=== PATIENT | female | born 1950 | race Two or more races ===

== ENCOUNTER → 2017-10-02 | Outpatient (CLI) | payer MEDICARE, MEDICAID ==
--- NOTE | 2017-10-02 11:35 | WOMENS IMAGING REPORT ---
EXAM DESCRIPTION: BILAT SCREENING MAMMO W/CAD COMPLETED DATE/TIME: 10/02/2017 8:46 am REASON FOR STUDY: SCREENING MAMMO Z12.31 ENCNTR SCREEN MAMMOGRAM FOR MALIGNANT NEOPLASM OF JOSE ANTONIO COMPARISON: 2014, 2015 TECHNIQUE: Standard craniocaudal and mediolateral oblique views of each breast recorded using digita l acquisition. LIMITATIONS: None. FINDINGS: No masses, calcifications or architectural distortion. No areas of suspicion. Read with the assistance of CAD. .[facility] - R2 Cenova Version 1.3 .[facility] Imaging - R2 Cenova Version 1.3 .[facility] Imaging - R2 Cenova Version 2.4 .[facility] - R2 Cenova Version 2.4 .[facility] - R2 Pharmacy Order Entry Technician Version 9.2 IMPRESSION: NORMAL MAMMOGRAM. BIRADS 1. BREAST DENSITY: b. There are scattered areas of fibroglandular density. BIRAD: 1 NEGATIVE RECOMMENDATION: ROUTINE SCREENING COMMENT: The patient has been notified of the results by letter per MQSA requirements. Additional no tification policies are in place for contacting patient with suspicious or incomplete findings. Quality ID #225: The [employer] recommends an annual screening mammogram for women aged 40 years or over. This facility utilizes a reminder system to ensure that all patients receive reminder letters, and/or direct phone calls for appointments. This includes reminders for routine scr eening mammograms, diagnostic mammograms, or other Breast Imaging Interventions when appropriate. Th is patient will be placed in the appropriate reminder system. The [employer] (ACR) has developed recommendations for screening MRI of the breast s in certain patient populations, to be used in conjunction with mammography. Breast MRI surveillanc e may be appropriate for women with more than 20% lifetime risk of developing breast cancer as deter mined by genetic testing, significant family history of the disease, or history of mantle radiation f or Hodgkins Disease. ACR Practice Guidelines 2008. TECHNICAL DOCUMENTATION: FINDING NUMBER: (1) ASSESSMENT: (1) JOB ID: [id number] [employer]- All Rights Reserved
== END ==
LOC: RAD 08:16
PROVIDERS: ATTEND Physician Assistant Medical
DX: Z12.31 Encounter for screening mammogram for malignant neoplasm of breast (principal)
CPT/HCPCS: 77067; G0202

== ENCOUNTER 2017-12-16 16:25 | Emergency (ER) | payer MEDICARE, MEDICAID ==
[2017-12-16] MEDS ORDERED: KETOROLAC TROMETHAMINE 60 MG/2 ML SDV IM ONE (18:30)
[2017-12-16] MEDS ORDERED: DEXAMETHASONE SOD PHOS INJ 10 MG/1 ML VIAL IM ONE (18:31)
--- NOTE | 2017-12-16 18:37 | ER Document Report ---
ED Neck/Back Problem - General Chief Complaint: Low Back Pain Stated Complaint: LOWER BACK PAIN Time Seen by Provider: 12/16/17 18:14 Mode of Arrival: Ambulatory Information source: Patient Notes: 67-year-old female presents to ED for complaint of low back pain across the left buttocks and down the left leg. She states she is had the pain for a while longer, but it is been severe for about a week and a half Saturday it got much worse. She states she has been to her primary doctor they did x-rays and told she had arthritis. They did not do x-rays of her hip she states. She does have a history of high blood pressure enlarged heart reflux gout vitamin D deficiency and arthritis. TRAVEL OUTSIDE OF THE [place] IN LAST 30 DAYS: No - HPI Patient complains to provider of: Pain, Lower back - Coughs left buttocks and down left leg Onset: Other - Week and a half, worse on Saturday Where: Home Onset: Gradual Timing: Still present Quality of pain: Sharp, Throbbing Severity: Severe Pain Level: 5 Context: Bending, Lifting, Turning Recent injury: No Associated symptoms: Like prior neck/back pain, Radiation to leg, Lower back pain - Cross left buttocks down left leg. denies: Constipation, Fever, Incontinence, Motor loss, Numbness/tingling, Sensory loss, Sweaty, Unable to urinate, Upper back pain Exacerbated by: Movement of trunk Relieved by: Nothing Similar symptoms previously: Yes Recently seen / treated by doctor: Yes - Related Data Allergies/Adverse Reactions: No Known Allergies Allergy (Verified 12/16/17 16:26) Past Medical History - General Information source: Patient - Social History Smoking Status: Never Smoker Cigarette use (# per day): No Chew tobacco use (# tins/day): No Smoking Education Provided: No Frequency of alcohol use: None Drug Abuse: None Lives with: Family Family History: Reviewed & Not Pertinent Patient has suicidal ideation: No Patient has homicidal ideation: No - Past Medical History Cardiac Medical History: Reports: Hx Hypertension, Other - Enlarged heart Pulmonary Medical History: Reports: None EENT Medical History: Reports: None Neurological Medical History: Reports: None Endocrine Medical History: Reports: None Renal/ Medical History: Reports: None Malignancy Medical History: Reports: None GI Medical History: Reports: None Musculoskeltal Medical History: Reports Hx Arthritis Skin Medical History: Reports None Psychiatric Medical History: Reports: None Traumatic Medical History: Reports: None Infectious Medical History: Reports: None Past Surgical History: Reports: Hx Abdominal Surgery - Ventral hernia surgery 3 , Hx Orthopedic Surgery - Left elbow pinched nerve, Other - Then lifted eyelids cataracts both eyes Review of Systems - Review of Systems Notes: Constitutional: [PRESENT: as per HPI. ABSENT: chills, fever(s), headache(s), weight gain, weight loss] Eyes: [ABSENT: visual disturbances] Ears: [ABSENT: hearing changes] Cardiovascular: [ABSENT: chest pain, dyspnea on exertion, edema, orthropnea, palpitations] Respiratory: [ABSENT: cough, hemoptysis] Gastrointestinal: [ABSENT: abdominal pain, constipation, diarrhea, hematemesis, hematochezia, nausea, vomiting] denies loss of control of bowel Genitourinary: [ABSENT: dysuria, hematuria] denies loss control of bladder Musculoskeletal: Complains of low back pain radiating across the left buttocks and down the left leg. Integumentary: [ABSENT: rash, wounds] Neurological: [ABSENT: abnormal gait, abnormal speech, confusion, dizziness, focal weakness, syncope] Psychiatric: [ABSENT: anxiety, depression, homicidal ideation, suicidal ideation ] Endocrine: [ABSENT: cold intolerance, heat intolerance, menstrual abnormalities , polydipsia, polyuria] Hematologic/Lymphatic: [ABSENT: easy bleeding, easy bruising, lymphadenopathy] Physical Exam - Vital signs Vitals: Temp Pulse Resp BP Pulse Ox 98.8 F 97 18 120/75 95 12/16/17 16:31 12/16/17 16:31 12/16/17 16:31 12/16/17 16:31 12/16/17 16:31 - Notes Notes: PHYSICAL EXAMINATION: GENERAL: Well-appearing, well-nourished and in no acute distress. HEAD: Atraumatic, normocephalic. EYES: Pupils equal round and reactive to light, extraocular movements intact, conjunctiva are normal. ENT: Nares patent, oropharynx clear without exudates. Moist mucous membranes. NECK: Normal range of motion, supple without lymphadenopathy LUNGS: Breath sounds clear to auscultation bilaterally and equal. No wheezes rales or rhonchi. HEART: Regular rate and rhythm without murmurs ABDOMEN: Soft, nontender, nondistended abdomen. No guarding, no rebound. No masses appreciated. Female : deferred Musculoskeletal: Tenderness to low back across the left buttocks and upper left thigh NEUROLOGICAL: Cranial nerves grossly intact. Normal speech, normal gait. Normal sensory, motor exams PSYCH: Normal mood, normal affect. SKIN: Warm, Dry, normal turgor, no rashes or lesions noted. Course - Re-evaluation Re-evalutation: 12/17/17 02:01 Left hip x-ray was negative for any acute injuries that did show arthritis. Patient states she recently had a l lumbar x-ray which was showed arthritis. Patient was treated with Toradol Decadron and Flexeril. Patient was discharged home to follow-up with orthopedics. - Vital Signs Vital signs: Temp Pulse Resp BP Pulse Ox 98.4 F 81 16 130/69 H 98 12/16/17 21:02 12/16/17 21:02 12/16/17 21:02 12/16/17 21:02 12/16/17 21:02 - Diagnostic Test Radiology reviewed: Image reviewed, Reports reviewed Discharge - Discharge Clinical Impression: Low back pain Qualifiers: Chronicity: acute Back pain laterality: left Sciatica presence: with sciatica Sciatica laterality: sciatica of left side Qualified Code(s): M54.42 - Lumbago with sciatica, left side Condition: Stable Disposition: HOME, SELF-CARE Additional Instructions: LOW BACK PAIN: Three out of every four people will have an episode of disabling back pain during their lifetime. Most commonly the pain is due to straining of the muscles and ligaments in the low back. Usual treatment includes: (1) Rest on a firm surface. Avoid lying on your stomach. (2) Ice pack the painful area. After a few days, gentle heat may be used intermittently to relax the area, or ice packs can be continued. (3) Medication may be needed -- muscle relaxers and antiinflammatory medicines are commonly used. (4) As the back improves, exercises are prescribed to strengthen the back and abdominal muscles. Your doctor will advise you on the proper care for your back at each stage in your recovery. You may be better in a few days -- or healing may take several weeks. If new symptoms of a "herniated disc" (radiation of pain, numbness, or tingling down the back of the leg or weakness in the leg) occur, you should be re-examined. Further testing may be necessary. STEROID MEDICATION: You have been given a medicine of the cortisone/steroid class. This medication is used to control inflammation or allergy. It is usually only given for a short period of time, until the acute process subsides. There are usually no side effects from short-term use of cortisone-like medications. Some persons feel an increased sense of well-being and are not sleepy at bedtime. Long-term use of cortisone medications is best avoided, unless required for a severe condition. If your condition does not remit, or relapses after the course of corticosteroid medication, you should consult your physician. Toradol Injection You have been given an injection of ketorolac tromethamine (Toradol). This is an excellent, safe drug for pain control. It also has potent antiinflammatory action. You should have significant pain relief within about one hour. Toradol is not addicting and is non-sedating. It does not interfere with driving or work. Call or return if you develop itching, hives, shortness of breath, or rash. MUSCLE RELAXERS: Muscle relaxing medications are usually prescribed for acute muscle spasm or injury to the neck and back. They are often combined with antiinflammatory pain medication for increased relief. You may stop the muscle relaxer when the pain and stiffness have improved. Start the medication again if spasms recur. Muscle relaxers may cause drowsiness, especially with the first dose. Do not operate machinery or drive while under the effects of the medication. Most muscle relaxers last up to 24 hours. Do not combine the medication with alcohol. ICE PACKS: Apply ice packs frequently against the painful area. Many different schedules are recommended, such as "20 minutes on, 20 minutes off" or "one hour ice, two hours rest." If you need to work, you may need to go longer between ice treatments. You should plan to have the area ice packed AT LEAST one fourth of the time. The ice should be applied over the wrap, tape, or splint, or over a layer of cloth -- not directly against the skin. Some ice bags have a built-in cloth and can be put directly on the skin. WARM PACKS: After approximately two days, apply gentle heat (such as a heating pad or hot water bottle) for about 20 to 30 minutes about every two hours -- at least four times daily. Warmth and elevation will help you make a more rapid recovery , and will ease the pain considerably. Do not use HOT heat, and never apply heat for longer than 30 minutes. The continuous heat can invisibly damage skin and muscles -- even when no burn is seen on the surface. Damaged muscles can make you MORE sore. FOLLOW-UP CARE: If you have been referred to a physician for follow-up care, call the physician s office for an appointment as you were instructed or within the next two days. If you experience worsening or a significant change in your symptoms, notify the physician immediately or return to the Emergency Department at any time for re-evaluation. Prescriptions: Cyclobenzaprine HCl [Flexeril 10 mg Tablet] 10 mg PO TIDP PRN #15 tab PRN Reason: Referrals: LIDIA RUBIO PA-C [Primary Care Provider] - Follow up as needed SILVIA CORNELL MD [ASSOCIATE] - Follow up as needed
--- NOTE | 2017-12-16 19:02 | RADIOLOGY REPORT (SQ) ---
EXAM DESCRIPTION: HIP LEFT AP/LATERAL COMPLETED DATE/TIME: 12/16/2017 6:54 pm REASON FOR STUDY: Severe pain left hip and buttocks COMPARISON: None. NUMBER OF VIEWS: Two views. TECHNIQUE: AP pelvis and additional frog-leg view of the left hip. LIMITATIONS: None. FINDINGS: MINERALIZATION: Normal. LEFT HIP: No fracture or dislocation. No worrisome bone lesions. No significant joint space narrowi ng RIGHT HIP: No fracture or dislocation. No worrisome bone lesions. No significant joint space narrow ing PUBIS AND ISCHIUM: No fracture. PELVIS: No fracture. SACRUM: No gross displaced sacral fracture. SI joint sclerosis bilaterally LOWER LUMBAR SPINE: Advanced degenerative disc changes and facet arthropathy at L4-5 and L5-S1 SOFT TISSUES: Multiple calcified pelvic phleboliths. Multiple surgical clips over the lower abdomen . OTHER: No other significant finding. IMPRESSION: No gross acute displaced left hip fracture or fracture of the pelvis. SI joint sclerosis bilaterally. Advanced lower lumbar facet and disc space degenerative changes TECHNICAL DOCUMENTATION: JOB ID: [id number] [employer]- All Rights Reserved Reading location - IP/workstation name: [facility]
[2017-12-16] MEDS ORDERED: CYCLOBENZAPRINE HCL 10 MG TABLET PO ONE (20:48)
[2017-12-16 21:03] VITALS: BP 130/69
== END 2017-12-16 21:02 | disposition home or self-care (01) ==
LOC: ER 16:25
DX: M54.42 Lumbago with sciatica, left side (principal); I10 Essential (primary) hypertension
CPT/HCPCS: 99283; 96372; 73502; A9270; J1885; J1100

== ENCOUNTER 2018-06-22 11:20 | Emergency (ER) | payer MEDICARE, MEDICAID ==
[2018-06-22 11:38] VITALS: BP 136/89
[2018-06-22] MEDS ORDERED: TRAMADOL HCL 50 MG TABLET PO ONE (12:04)
[2018-06-22] MEDS ORDERED: DEXAMETHASONE SOD PHOS INJ 10 MG/1 ML VIAL IM ONE (12:04)
[2018-06-22] MEDS ORDERED: LIDOCAINE 5% (700 MG) TRANSDERMAL ADH..PATCH TP ONE (12:04)
[2018-06-22] MEDS ORDERED: KETOROLAC TROMETHAMINE 60 MG/2 ML SDV IM ONE (12:04)
--- NOTE | 2018-06-22 12:10 | ER Document Report ---
ED General - General Chief Complaint: Back Pain Stated Complaint: BACK PAIN Time Seen by Provider: 06/22/18 11:50 TRAVEL OUTSIDE OF THE [place] IN LAST 30 DAYS: No - HPI Patient complains to provider of: Acute exacerbation of chronic back pain Notes: Patient coming in for acute exacerbation of chronic back pain. Patient states she did miss her last pain management appointment where she was getting injections. Patient states acutely increase in pain in the last 24-48 hours. Patient locates most of the pain at the sacroiliac joint on the left-hand side. Patient denies any pain going down her leg but does state there is some pain going into her buttocks. Patient states she has been told pain is related to arthritis in the past receiving good relief with Toradol and steroid injection in the past. Patient states she is on muscle relaxers at home states that these not been relieving her pain. Denies any trauma denies any fevers chills nausea vomiting diarrhea denies any tingling denies any saddle anesthesias denies any loss of bowel or bladder function - Related Data Allergies/Adverse Reactions: Penicillins Allergy (Verified 06/22/18 11:51) Past Medical History - Social History Smoking Status: Former Smoker Family History: Reviewed & Not Pertinent Patient has suicidal ideation: No Patient has homicidal ideation: No - Past Medical History Cardiac Medical History: Reports: Hx Hypertension Renal/ Medical History: Denies: Hx Peritoneal Dialysis Musculoskeletal Medical History: Reports Hx Arthritis Past Surgical History: Reports: Hx Abdominal Surgery - Ventral hernia surgery 3 , Hx Orthopedic Surgery - Left elbow pinched nerve, Other - Then lifted eyelids cataracts both eyes Review of Systems - Review of Systems Constitutional: No symptoms reported EENT: No symptoms reported Cardiovascular: No symptoms reported Respiratory: No symptoms reported Gastrointestinal: No symptoms reported Genitourinary: No symptoms reported Female Genitourinary: No symptoms reported Musculoskeletal: Back pain Skin: No symptoms reported Hematologic/Lymphatic: No symptoms reported Neurological/Psychological: No symptoms reported -: Yes All other systems reviewed and negative Physical Exam - Vital signs Vitals: Temp Pulse Resp BP Pulse Ox 97.9 F 95 17 136/89 H 98 06/22/18 11:36 06/22/18 11:36 06/22/18 11:36 06/22/18 11:36 06/22/18 11:36 Interpretation: Normal - General General appearance: Appears well, Alert - HEENT Head: Normocephalic, Atraumatic Eyes: Normal Pupils: PERRL - Respiratory Respiratory status: No respiratory distress Chest status: Nontender Breath sounds: Normal Chest palpation: Normal - Cardiovascular Rhythm: Regular Heart sounds: Normal auscultation Murmur: No - Abdominal Inspection: Normal Distension: No distension Bowel sounds: Normal Tenderness: Nontender Organomegaly: No organomegaly - Back Back: Normal, Nontender, Other - Patient with exquisite tenderness palpation the sacroiliac joint on left with pain as well with palpation of the piriformis muscle however minimal pain going down the back of the patient's leg to palpation - Extremities General upper extremity: Normal inspection, Nontender, Normal color, Normal ROM , Normal temperature General lower extremity: Normal inspection, Nontender, Normal color, Normal ROM , Normal temperature, Normal weight bearing. No: Kaylynn's sign - Neurological Neuro grossly intact: Yes Cognition: Normal Orientation: AAOx4 Yary Coma Scale Eye Opening: Spontaneous Yary Coma Scale Verbal: Oriented Yary Coma Scale Motor: Obeys Commands Yary Coma Scale Total: 15 Speech: Normal Motor strength normal: LUE, RUE, LLE, RLE Sensory: Normal - Psychological Associated symptoms: Normal affect, Normal mood - Skin Skin Temperature: Warm Skin Moisture: Dry Skin Color: Normal Course - Re-evaluation Re-evalutation: 06/22/18 20:18 Acute exacerbation of chronic back pain with some sciatic symptoms to palpation. Patient will be given Toradol steroid shot will also start patient on a Ultram regimen to help out with her pain control. Patient was warned about taking Ultram her muscle relaxers together states that she will only take the Ultram for her pain control. Patient is to follow-up with her primary care physician return to ER symptoms worsen. The patient presents with low back pain without signs of spinal cord compression, cauda equina syndrome, infection , aneurysm, or other serious etiology. The patient is neurologically intact. Given the extremely low risk of these diagnoses further testing and evaluation for these possibilities does not appear to be indicated at this time. The patient has been instructed to return if the symptoms worsen or change in any way. - Vital Signs Vital signs: Temp Pulse Resp BP Pulse Ox 97.9 F 95 17 136/89 H 98 06/22/18 11:36 06/22/18 11:36 06/22/18 11:36 06/22/18 11:36 06/22/18 11:36 Discharge - Discharge Clinical Impression: Acute exacerbation of chronic low back pain Condition: Good Disposition: HOME, SELF-CARE Instructions: Acetaminophen, Ice Packs ([facility]), Low Back Pain ([facility]), Oral Narcotic Medication ([facility]), Sciatica ([facility]), Warm Packs ([facility]) Additional Instructions: Evaluation is consistent with acute exacerbation of chronic lower back pain with a possible component of sciatica. Would recommend use ice packs warm packs lidocaine patches for your pain control. We will give you a dose of ketorolac along with Decadron which is a steroid. He can take the tramadol for pain control take no other muscle relaxers with the tramadol. He can take Tylenol with the tramadol prescribed. Follow-up with your primary care physician in the next 3-5 days. Return to ER symptoms worsen. Please rest today Happy birthday Prescriptions: Tramadol HCl [Ultram 50 mg Tablet] 50 mg PO ASDIR PRN #20 tablet PRN Reason: Referrals: LIDIA RUBIO PA-C [Primary Care Provider] - Follow up as needed
== END 2018-06-22 12:25 | disposition home or self-care (01) ==
LOC: ER 11:20
DX: G89.29 Other chronic pain (principal); M54.5 Low back pain; M53.3 Sacrococcygeal disorders, not elsewhere classified; I10 Essential (primary) hypertension; Z79.899 Other long term (current) drug therapy; Z88.0 Allergy status to penicillin; Z87.891 Personal history of nicotine dependence
CPT/HCPCS: 99283; 96372; J1885; A9270; J1100

== ENCOUNTER → 2018-10-07 | Outpatient (CLI) | payer MEDICARE, MEDICAID ==
--- NOTE | 2018-10-07 17:07 | WOMENS IMAGING REPORT ---
EXAM DESCRIPTION: BILAT SCREENING MAMMO W/CAD COMPLETED DATE/TIME: 10/07/2018 11:31 am REASON FOR STUDY: SCREENING ONNEZK91.31 ENCNTR SCREEN MAMMOGRAM FOR MALIGNANT NEOPLASM OF JOSE ANTONIO COMPARISON: Multiple since 2014 TECHNIQUE: Standard craniocaudal and mediolateral oblique views of each breast recorded using Send[employer] l acquisition. LIMITATIONS: None. FINDINGS: RIGHT BREAST MASSES: Nodule versus superimposed shadows, right breast far upper outer quadrant about 12 cm from th e nipple. Additional cone compression and 90 mediolateral mammograms are required for followup. If this finding persists, then ultrasound would be required for followup. CALCIFICATIONS: No new or suspicious calcifications. ARCHITECTURAL DISTORTION: None. DEVELOPING DENSITY: None. ASYMMETRY: None noted. OTHER: No other significant findings. LEFT BREAST MASSES: No suspicious masses. CALCIFICATIONS: No new or suspicious calcifications. ARCHITECTURAL DISTORTION: None. DEVELOPING DENSITY: None. ASYMMETRY: None noted. OTHER: No other significant findings. Read with the assistance of CAD. .[facility] - R2 Cenova Version 1.3 .[facility] Imaging - R2 Cenova Version 1.3 .[facility] Imaging - R2 Cenova Version 2.4 .[facility] [place] - R2 Cenova Version 2.4 .[facility] - R2 [place] [employer]ender Version 9.2 IMPRESSION: No mammographic evidence for malignancy left breast. On the right side, there is a nodule versus superimposed shadows right breast far upper outer quadran t for which additional diagnostic mammograms and ultrasound are recommended BREAST DENSITY: a. The breasts are almost entirely fatty. BIRAD: 0 Incomplete: Needs Additional Imaging Evaluation and/or prior Mammograms for Comparison. RECOMMENDATION: RECOMMENDED FOLLOW-UP: Additional right breast cone compression views, 90 mediolate ral view, and ultrasound The patient will be contacted for additional imaging. COMMENT: The patient has been notified of the results by letter per SA requirements. Additional no tification policies are in place for contacting patient with suspicious or incomplete findings. Quality ID #[id number]: [employer] recommends an annual screening mammogram for women aged 40 years or over. This facility utilizes a reminder system to ensure that all patients receive reminder letters, and/or direct phone calls for appointments. This includes reminders for routine scr eening mammograms, diagnostic mammograms, or other Breast Imaging Interventions when appropriate. Th is patient will be placed in the appropriate reminder system. The [employer] (ACR) has developed recommendations for screening MRI of the breast s in certain patient populations, to be used in conjunction with mammography. Breast MRI surveillanc e may be appropriate for women with more than 20% lifetime risk of developing breast cancer as deter mined by genetic testing, significant family history of the disease, or history of mantle radiation f or Hodgkins Disease. ACR Practice Guidelines 2008. TECHNICAL DOCUMENTATION: FINDING NUMBER: (1) ASSESSMENT: (1) JOB ID: [id number] [employer]- All Rights Reserved Reading location - IP/workstation name: [facility]
== END ==
LOC: WI 10:50
PROVIDERS: ATTEND Nurse Practitioner Family
DX: Z12.31 Encounter for screening mammogram for malignant neoplasm of breast (principal)
CPT/HCPCS: 77067

== ENCOUNTER → 2018-10-22 | Outpatient (CLI) | payer MEDICARE, MEDICAID ==
--- NOTE | 2018-10-22 11:52 | WOMENS IMAGING REPORT ---
EXAM DESCRIPTION: RIGHT DIAGNOSTIC MAMMO W/CAD; U/S BREAST UNILAT LIMITED COMPLETED DATE/TIME: 10/22/2018 11:06 am; 10/22/2018 11:35 am REASON FOR STUDY: N63.11 UNSPECIFIED LUMP IN THE RIGHT BREAST, UPPER OUTER QUADRANT; N63.1 RIGHT N63 .11 UNSPECIFIED LUMP IN THE RIGHT BREAST, UPPER OUTER JOSE ELIAS COMPARISON: 10/07/2018 TECHNIQUE: True lateral and cone compression views. LIMITATIONS: None. FINDINGS: BREAST: right MASSES: No suspicious masses. CALCIFICATIONS: No new or suspicious calcifications. ARCHITECTURAL DISTORTION: None. DEVELOPING DENSITY: Upper outer quadrant partially compresses out. No underlying mass. ASYMMETRY: None noted. OTHER: No other significant findings. Ultrasound upper outer quadrant was normal. IMPRESSION: No evidence of malignancy. BREAST DENSITY: b. There are scattered areas of fibroglandular density. BIRAD: 1 Negative. RECOMMENDATION: RECOMMENDED FOLLOW UP: Birads 1 or 2: The patient should resume routine screening . SPECIFIC INTERVENTION/IMAGING/CONSULTATION RECOMMENDED:No additional intervention/ imaging/consultati on needed at this time. COMMUNICATION:The imaging findings were not discussed with the patient. Her referring provider has be en notified of the findings. COMMENT: The patient has been notified of the results by letter per SA requirements. Additional no tification policies are in place for contacting patient with suspicious or incomplete findings. Quality ID #[id number]: The [employer] recommends an annual screening mammogram for women aged 40 years or over. This facility utilizes a reminder system to ensure that all patients receive reminder letters, and/or direct phone calls for appointments. This includes reminders for routine scr eening mammograms, diagnostic mammograms, or other Breast Imaging Interventions when appropriate. Th is patient will be placed in the appropriate reminder system. The [employer] ([employer]) has developed recommendations for screening MRI of the breast s in certain patient populations, to be used in conjunction with mammography. Breast MRI surveillanc e may be appropriate for women with more than 20% lifetime risk of developing breast cancer as deter mined by genetic testing, significant family history of the disease, or history of mantle radiation f or Hodgkins Disease. ACR Practice Guidelines 2008. TECHNICAL DOCUMENTATION: FINDING NUMBER: (1) ASSESSMENT: (1) JOB ID: [id number] [employer]- All Rights Reserved Reading location - IP/workstation name: PENDING SALE TO [facility]
== END ==
LOC: WI 10:37
PROVIDERS: ATTEND Nurse Practitioner Family
DX: N63.11 Unspecified lump in the right breast, upper outer quadrant (principal)
CPT/HCPCS: 76642

== ENCOUNTER 2019-11-27 07:57 | Day surgery (SDC) | payer MEDICARE, MEDICAID ==
[2019-11-23 10:15] LABS: APPEARANCE,URINE CLEAR; BILIRUBIN,URINE NEGATIVE (NEGATIVE); COLOR,URINE YELLOW; GLUCOSE, URINE NEGATIVE (NEGATIVE); KETONES,URINE NEGATIVE (NEGATIVE); LEUKOCYTE ESTERASE,URINE LARGE (NEGATIVE); NITRITE,URINE NEGATIVE (NEGATIVE); PROTEIN,URINE NEGATIVE (NEGATIVE); URINE SPECIFIC GRAVITY 1.013
[2019-11-23 10:21] LABS: HEMATOCRIT 43.2 % (36.0-47.0); HEMOGLOBIN 14.6 g/dL (12.0-15.5); MEAN CORPUSCULAR HGB CONC 33.9 g/dL (32.0-36.0); MEAN CORPUSCULAR VOLUME 92 fl (80-97); PLATELET COUNT 233 10^3/uL (150-450); RED BLOOD COUNT 4.71 10^6/uL (3.72-5.28); RED CELL DISTRIBUTION WIDTH 14.4 % (11.5-14.0); WHITE BLOOD COUNT 7.1 10^3/uL (4.0-10.5)
[2019-11-23 10:37] LABS: ANION GAP 9 (5-19); BLOOD UREA NITROGEN 16 mg/dL (7-20); CALCIUM 9.4 mg/dL (8.4-10.2); CARBON DIOXIDE 33 mmol/L (22-30); CHLORIDE 97 mmol/L (98-107); GLUCOSE 151 mg/dL (75-110)
[~2019-11-27 07:57] MED LIST: DOXYCYCLINE HYCLATE 100 MG in DEXTROSE 5%-WATER 250 ML IV PRN; LACTATED RINGERS 1000 ML IV PRN; LIDOCAINE 0.5% INJ-PF (5 MG/ML) 50 ML SDV SUBCUT PRN
[2019-11-27] MEDS ORDERED: ALBUTEROL SULFATE 0.083% NEB 2.5 MG/3 ML AMPUL NEB ONE ×2 (09:15→09:20)
[2019-11-27] MEDS ORDERED: METOCLOPRAMIDE HCL INJ/PF 10 MG/2 ML SDV IV ONE (09:15)
[2019-11-27] MEDS ORDERED: FAMOTIDINE INJ/PF 20 MG/2 ML SDV IV ONE ×2 (09:15→09:21)
[2019-11-27] MEDS ORDERED: METOCLOPRAMIDE HCL INJ/PF 10 MG/2 ML SDV ONE (09:21)
[2019-11-27] MEDS ORDERED: DEXAMETHASONE SOD PHOSPHATE INJ 4 MG/1 ML VIAL ONE (13:07)
[2019-11-27] MEDS ORDERED: ONDANSETRON HCL INJ/PF 4 MG/2 ML SDV ONE (13:07)
[2019-11-27] MEDS ORDERED: FENTANYL CITRATE INJ/PF 100 MCG/2 ML AMPUL ONE (13:07)
[2019-11-27] MEDS ORDERED: PROPOFOL INJ 200 MG/20 ML VIAL IV ONE (13:07)
[2019-11-27] MEDS ORDERED: LIDOCAINE 1% INJ-PF (10 MG/ML) 30 ML SDV ONE (13:08)
[2019-11-27] MEDS ORDERED: LIDOCAINE 1%/EPINEPHRINE INJ 20 ML VIAL ONE (13:08)
[2019-11-27] MEDS ORDERED: ONDANSETRON HCL INJ/PF 4 MG/2 ML SDV IV PRN (14:05)
[2019-11-27] MEDS ORDERED: FENTANYL CITRATE INJ/PF 100 MCG/2 ML AMPUL IV PRN ×3 (14:05)
[2019-11-27] MEDS ORDERED: PROMETHAZINE HCL INJ 25 MG/1 ML VIAL IV PRN ×2 (14:05)
[2019-11-27] MEDS ORDERED: DIPHENHYDRAMINE HCL 50 MG/ML VIAL IV PRN (14:05)
[2019-11-27] MEDS ORDERED: FERRIC SUBSULFATE TP ONE (15:06)
--- NOTE | 2019-11-27 15:36 | Operative Report ---
Operative Report DATE OF SURGERY: 11/27/19 PREOPERATIVE DIAGNOSIS: Thick endometrium by US. SHANI III ECC. High risk HPV p ositive POSTOPERATIVE DIAGNOSIS: Same as above with fibroid in uterine cavity OPERATION: Dilation and curettage, Hysteroscopy, Myosure, cone biopsy of cervix and ECC SURGEON: RADHA CORNELIUS ANESTHESIA: GA TISSUE REMOVED OR ALTERED: Cone biopsy of cervix. Endometrial curettings. Myosure sampling of fibroid within uterus. Endocervical curetting COMPLICATIONS: None ESTIMATED BLOOD LOSS: 20 INTRAOPERATIVE FINDINGS: Atrophic vaginal mucosa, flat atrophic cervix-otherwise normal in appearance. Fibroid filling the endometrial cavity. Lining of endometrial cavity is otherwise atrophic and smooth. Ostia on right identified. Left ostia not seen due to fibroid. PROCEDURE: IV fluids: Crystalloid IV fluids per anesthesia record Disposition: To recovery room in stable condition Description of the procedure: The patient was taken to the operating room where general anesthesia was administered and found to be adequate. She was then placed in the dorsol lithotomy position and prepped and draped in the usual sterile fashion. A timeout was taken. Doxycycline 100mg was given prior to the procedure for infection prophylaxis. A bivalve speculum was placed in the vagina and the cervix was brought into good view. A single tooth tenaculum was used to grasp the anterior lip of the cervix and the cervix was serially dilated. The uterus sounded to approximately 9 cm. The hysteroscope was then inserted and using a saline distention medium the uterine cavity was inspected. Multiple pictures were obtained. A large pedunculated fibroid was noted filling the endometrial cavity. At this point the myosure was inserted and the fibroid was sampled. Attempt was made to remove with forceps but not able to remove. The myosure was reinserted and the fibroid partially removed. Good sampling done of fibroid and endometrium. Due to the size and poor visualization with bleeding the myosure was stopped. The hysteroscope was withdrawn. Attention was then turned to the cone procedure. A narrow arlette x2 was used to visualize the cervix. Using Lidocaine with epinephrine, cervical block was done. Four stitches were then placed at the 1-11, 10-8, 7-5 and 4-2 areas with 0 vicryl sutures. These were used for traction on the cervix. The cone biopsy was taken and all sutures cut short except at the 1-11 area which this suture was left long. Bovie cautery used for hemostatis along with monsels and surgi foam. Bleeding was minimal. The procedure was then terminated all instruments were removed from the patient's vagina. The patient tolerated the procedure well all instrument sponge and needle counts were correct x2 for the procedure she will proceed to recovery room in stable condition
[2019-11-27] MEDS ORDERED: KETOROLAC TROMETHAMINE INJ/PF 30 MG/1 ML SDV ONE (15:40)
[2019-11-27] MEDS ORDERED: ACETAMINOPHEN 1,000 MG/100 ML RTUPB IV ONE (15:41)
[2019-11-27] MEDS ORDERED: OXYCODONE-ACETAMINOPHEN 5-325 MG TABLET ONE (16:48)
[2019-11-27 18:17] VITALS: BP 127/75
== END 2019-11-27 17:45 | disposition home or self-care (01) ==
LOC: OROUT 07:57
PROVIDERS: ATTEND Student in an Organized Health Care Education/Training Program
DX: D06.9 Carcinoma in situ of cervix, unspecified (principal); D25.0 Submucous leiomyoma of uterus; R87.810 Cervical high risk human papillomavirus (HPV) DNA test positive; Z79.899 Other long term (current) drug therapy; G47.33 Obstructive sleep apnea (adult) (pediatric); E66.9 Obesity, unspecified
CPT/HCPCS: 86900; 86901; 36415 ×2; 86850; 82962; 84132; 85027; 80048; 81001; 88305 ×2; 88307 ×2; 00952; 57520; 58558; J1100; J3490 ×2; J3010; J1885; J2765; A9270 ×2; J2405; J7060; J2704; S0028; J0131; 952